=== PATIENT | female | born 1950 | race Caucasian/White ===

== ENCOUNTER 2017-08-17 09:52 | Emergency (ER) | payer OTHER ==
[2017-08-17 10:00] VITALS: BP 150/65; BMI 22.8
[2017-08-17] MEDS ORDERED: VISTARIL PO ONE ×2 (10:46→10:57)
[2017-08-17] MEDS ORDERED: PREDNISONE TAB 20 MG PO ONE ×2 (10:46→10:57)
--- NOTE | 2017-08-17 10:48 | DR.GENAD ---
HPI - PCP Primary Care Physician: Dr. Phan - HPI Comment HPI Comment: STILL ITCHING. DID NOT TAKE ITCHING MEDICATION. - Complaint/Symptoms Chief Complaint Doctors Comments: PATIENT WAS HAVIND PROBLEM SLEEPING. TOOK HYDROCODONE. ITCHING, AND JUMPY SINCE. ALLERGIC TO CODEINE BUT TOOK HYDROCODONE PREVIOUSLY. DENIES THROAT DISCOMFORT OR CHEST TIGHTNESS. Chief Complaint:: Pt states "Last night about 11pm i took half of a hydrocodone. Since then I feel like I'm just stinging all over. I feel jumpy and haven't slept." - Nurses notes reviewed Nurses Notes Review: Yes - Source History Provided: Patient - Mode of Arrival Mode of Arrival: Ambulatory - Timing Onset of Chief Complaint: 08/17/17 Came on: Suddenly - Duration Duration: Constant Duration: Hours - Severity Severity: Moderate PMH - PMH Past Medical History: Yes Past Medical History: Arthritis, Hypertension, Hypothyroidism Past Surgical History: Yes Surgical History: , Hysterectomy - Family History History of Family Medical Conditions: No - Social History Does patient currently use any type of tobacco product: Yes Have you used tobacco products in the last 12 months: Yes Type of Tobacco Use: Cigarettes Does any household member use tobacco: No Alcohol Use: None Do you use any recreational Drugs:: No Lives With: Alone Lives Where: Home - infectious screening In the last 2 months have you had wt loss of >10#?: NO Have you had fever, night sweats or hemotysis?: No Have you traveled outside the country in the last 6 months?: No Isolation: Standard ROS - Review of Systems Constitutional: No Symptoms Reported Eyes: No Symptoms Reported ENTM: No Symptoms Reported Respiratoy: No Symptoms Reported Cardiovascular: No Symptoms Reported Gastrointestinal/Abdominal: No Symptoms Reported Genitourinary: No Symptoms Reported Neurological: No Symptoms Reported, Other (ANXIOUS.) Musculoskeletal: No Symptoms Reported Integumentary: Itching Hematologic/Lymphatic: No Symptoms Reported Endocrine: No Symptoms Reported All Other Systems: Reviewed and Negative PE - Vital Signs Vitals: Temperature 97.9 F Pulse Rate 69 Respiratory Rate 20 Blood Pressure 150/65 O2 Sat by Pulse Oximetry 99 - General Limitations: No Limitations General Appearance: Alert - Head Head Exam: Normal Inspection - Eyes Eye exam: Normal Appearance - ENT ENT Exam: Normal External Ear Exam External Ear Exam: Normal External Inspection TM/Canal Exam: Bilateral Normal Nose Exam: Normal Nose Exam Mouth Exam: Normal Inspection Throat Exam: Normal Inspection - Neck Neck Exam: Trachea Midline - Chest Chest Inspection: Symmetric Chest Wall Rise - Respiratory Respiratory Exam: Normal Lung Sounds Bilat Respiratory Exam: Bilateral Clear to Auscultation - Cardiovascular Cardiovascular Exam: Regular Rate, Normal Rhythm, Normal Heart Sounds - Abdominal Exam Abdominal Exam: Normal Bowel Sounds, Soft. negative: Tenderness - Extremities Extremities Exam: Normal Inspection - Back Back Exam: Normal Inspection - Neurologic Neurological Exam: Alert, Oriented X3 - Psychiatric Psychiatric Exam: Anxious - Skin Skin Exam: Normal Color, Other (PRURITUS) MDM - Differential Diagnosis Differential Diagnosis: ALLERGIC REACTION, PRURITUS Course - Treatment Treatment: SEE ORDERS. - Education/Counseling Education/Counseling: Patient, Education Educated On: Diagnosis, Needs for Follow Up - Diagnosis Discharge Problem: Pruritus Allergic reaction Qualifiers: Encounter type: initial encounter Qualified Code(s): T78.40XA - Allergy, unspecified, initial encounter - Discharge Plan Disposition: 01 HOME, SELF-CARE Condition: Stable Prescriptions: Hydroxyzine Pamoate [Vistaril] 25 mg PO Q12H #10 capsule Prednisone [Prednisone Tab 10 mg] 10 mg PO QAM #5 tab - Follow ups/Referrals Follow ups/Referrals: [facility],None [Primary Care Provider] - 3 days - Instructions Instructions: Allergies, Adult, [id number] Additional Instructions: RETURN TO ED IF WORSE.
== END 2017-08-17 11:15 | disposition home or self-care (01) ==
LOC: ER 10:05
DX: T78.40XA Allergy, unspecified, initial encounter (principal); L29.9 Pruritus, unspecified
CPT/HCPCS: 99282; Q0177; J7506